=== PATIENT | male | born 2000 | race Hispanic/Latino ===

== ENCOUNTER 2021-08-05 21:03 | Emergency (ER) | payer OTHER ==
[~2021-08-05] VITALS: Ht 180.3 cm; Wt 77.1 kg
[2021-08-05] MEDS ORDERED: LIDOCAINE HCL-MPF 1% 2ML VIAL ONE (21:39)
[2021-08-05] MEDS ORDERED: CEPHALEXIN 500 MG CAPSULE PO ONE (22:00)
[2021-08-05] MEDS ORDERED: LIDOCAINE HCL 1% 20 ML VIAL INJ SCH (22:00)
[2021-08-05] MEDS ORDERED: TETANUS/DIPHTHERIA TOXOID [ADULT] 0.5 ML VIAL IM ONE (22:00)
[2021-08-05] MEDS ORDERED: CEPH500B PO (22:06)
[2021-08-05 22:09] VITALS: BP 120/70
== END 2021-08-05 22:13 | disposition home or self-care (01) ==
LOC: EDH 21:03
DX: S61.442A Puncture wound with foreign body of left hand, initial encounter (principal); W45.8XXA Other foreign body or object entering through skin, initial encounter; Y93.89 Activity, other specified; Y92.89 Other specified places as the place of occurrence of the external cause; Y99.8 Other external cause status
CPT/HCPCS: 73130; 90471; 90714; 99284; J3490